=== PATIENT | female | born 1995 | race Caucasian/White ===

== ENCOUNTER 2021-12-09 19:59 | Emergency (ER) | payer BC ==
[~2021-12-09] VITALS: Ht 165.1 cm; Wt 61.2 kg
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
[2021-12-09] MEDS ORDERED: NAPR-1192 PO (23:42)
[2021-12-09 23:58] VITALS: BP 131/60
--- NOTE | 2021-12-09 23:58 | NUR ---
Patient discharged to home in stable condition. Written and verbal after care instructions given. Patient verbalizes understanding of instruction.
== END 2021-12-09 23:59 | disposition home or self-care (01) ==
LOC: ER 20:03
DX: M79.641 Pain in right hand (principal); R51.9 Headache, unspecified; M54.2 Cervicalgia; V49.49XA Driver injured in collision with other motor vehicles in traffic accident, initial encounter; Y93.89 Activity, other specified; Y92.413 State road as the place of occurrence of the external cause; Y99.8 Other external cause status
CPT/HCPCS: 70450-TC; 72125-TC; 73130-TC

== ENCOUNTER 2025-01-30 00:05 | Emergency (ER) | payer BC, MEDICAID, OTHER ==
[~2025-01-30] VITALS: Ht 167.6 cm; Wt 62.6 kg
[~2025-01-30 00:05] MED LIST: NAPR-1192 PO
[2025-01-30] MEDS ORDERED: ONDANSETRON HCL/PF 4 MG/2 ML VIAL ONE (02:29)
[2025-01-30] MEDS ORDERED: MORPHINE SULFATE INJ 2 MG/ML DISP.SYRIN ONE ×2 (02:29→04:16)
[2025-01-30] MEDS: IV LR 1000 ML 1,000 ML BAG IV ONE (02:34)
[2025-01-30] MEDS: MORPHINE SULFATE INJ 2 MG/ML DISP.SYRIN IV ONE ×2 (02:34→04:22)
[2025-01-30] MEDS: ONDANSETRON HCL/PF 4 MG/2 ML VIAL IV ONE (02:34)
[2025-01-30 04:23] VITALS: BP 100/68; TEMP 98.8; O2SAT 100
== END 2025-01-30 04:25 | disposition home or self-care (01) ==
LOC: ER 00:10
DX: J02.9 Acute pharyngitis, unspecified (principal); R13.10 Dysphagia, unspecified; R68.83 Chills (without fever)
CPT/HCPCS: 99284; 96374; 96361; 96375; 96376; 87070; 87880; J2405; J7120; J2270 ×2; 86403-TC